=== PATIENT | male | born 1975 | race Two or more races ===

== ENCOUNTER 2018-10-13 03:28 | Inpatient (IN) | payer MEDICAID ==
[~2018-10-13] VITALS: Ht 177.8 cm; Wt 89.7 kg
[2018-10-13] MEDS ORDERED: ONDANSETRON HCL 4 MG/2 ML VIAL IV ONE (07:15)
[2018-10-13] MEDS ORDERED: MORPHINE SULFATE 4 MG/ML SYR/VIAL IV ONE (07:15)
[2018-10-13] MEDS ORDERED: SODIUM CHLORIDE 0.9% 1,000 ML IV ONE (08:15)
[2018-10-13] MEDS ORDERED: PIPERACILLIN-TAZOB 3.375GM 100 ML IV ONE ×2 (08:15→09:15)
[2018-10-13 08:18] LABS: Basophils # (auto) 0.1 uL; Basophils % (auto) 0.8 % (0.0-2.0); Eosinophils # (auto) 0 uL; Hematocrit 45.5 % (41.0-53.0); Hemoglobin 15.5 g/dL (13.5-17.5); Lymphocytes # (auto) 0.8 uL; Lymphocytes % (auto) 5.2 % (10.0-50.0); Mean Corpuscular Hemoglobin 30.7 pg (28.0-32.0); Mean Corpuscular Hgb Conc. 34.1 g/dL (32.0-36.0); Mean Corpuscular Volume 90.2 fL (80.0-100.0); Monocytes # (auto) 0.5 uL; Monocytes % (auto) 3.3 % (0.0-12.0); Neutrophils # (auto) 14.4 uL; Neutrophils % (auto) 90.7 % (37.0-80.0); Nucleated Red Blood Cells % 0.1 %; Platelet Count (auto) 287 10^3/uL (140-450); Red Blood Cells 5.05 10^6/uL (4.5-5.90); Red Cell Distribution Width 12.7 % (11.8-14.3); White Blood Cell 15.8 10^3/uL (4.4-10.8)
[2018-10-13 08:20] LABS: Calcium 9.2 mg/dL (8.5-10.1)
[2018-10-13 08:25] LABS: BUN/Creatinine Ratio 21.4; Bilirubin, Total 0.7 mg/dL (0.2-1.0); Total Protein 7.4 g/dL (6.4-8.2)
[2018-10-13] MEDS ORDERED: KETOROLAC TROMETH 30 MG/ML 1ML VIAL IV ONE (09:15)
[2018-10-13] MEDS ORDERED: MORPHINE SULFATE 4 MG/ML SYR/VIAL IV PRN (09:30)
[2018-10-13] MEDS ORDERED: NITROGLYCERIN 0.4 MG SL TAB SL PRN (09:30)
[2018-10-13] MEDS ORDERED: traMADol HCL 50 MG TAB PO PRN (09:45)
[2018-10-13] MEDS ORDERED: LORazepam 0.5 MG TAB PO PRN (09:45)
[2018-10-13] MEDS ORDERED: PANTOPRAZOLE 40 MG/10 ML VIAL IV ONE (09:45)
[2018-10-13] MEDS ORDERED: cefTRIAXone 1GM/50ML D5W 50 ML IV ONE (09:45)
[2018-10-13 09:47] LABS: Urine Amorphous Crystal MANY /hpf (None Seen); Urine Bacteria NONE SEEN /hpf (None Seen); Urine Blood Negative /uL (Negative); Urine Budding Yeast MODERATE /hpf (None Seen); Urine Specific Gravity 1.029 (1.001-1.035); Urine WBC 16 /hpf (0 - 3)
[2018-10-13 10:07] LABS: Partial Thromboplastin Time 27.6 sec (23.78-33.04); Prothrombin Time 10.7 sec (9.27-12.13)
[2018-10-13] MEDS: SODIUM CHLORIDE 0.9% 1,000 ML IV SCH (10:25)
[2018-10-13] MEDS: metroNIDAZOLE 500MG/100ML 100 ML IV SCH ×2 (12:22→18:01)
[2018-10-13 17:10] VITALS: BP 107/71
[2018-10-13 17:25] VITALS: BP 107/71
--- NOTE | 2018-10-13 17:25 | NUR ---
Telemetry admit from ER SWAPNIL BHATTI admitted to Telemetry unit. Patient oriented to CARLOS LAI RN primary RN, unit, room, bed, and unit policies regarding patient care and visiting hours. Patient now on continuous telemetry monitoring. Discussed POC and encouraged to call if they need something. All questions and concerns addressed, patient verbalized understanding.
--- NOTE | 2018-10-13 19:45 | NUR ---
End of Shift Endorsed care to [facility] nurse Desirae. Patient shows no signs of distress at this time. Bed in lowest locked position, side rails up x2, and call light within reach.
--- NOTE | 2018-10-13 20:10 | NUR ---
received pt from day rn poc reviewed
[2018-10-13 22:00] VITALS: BP 117/71
[2018-10-13] MEDS: MORPHINE SULFATE 4 MG/ML SYR/VIAL IV PRN (22:52)
--- NOTE | 2018-10-13 22:54 | NUR ---
pts tele removed per charge nurse protocol pt has been sr no c/o cp
[2018-10-14] MEDS: metroNIDAZOLE 500MG/100ML 100 ML IV SCH ×5 (04:13→23:58)
[2018-10-14 04:47] VITALS: BP 103/59
[2018-10-14] MEDS: SODIUM CHLORIDE 0.9% 1,000 ML IV SCH ×2 (05:31→06:58)
[2018-10-14 06:30] LABS: Basophils # (auto) 0 uL; Basophils % (auto) 0.3 % (0.0-2.0); Eosinophils # (auto) 0.2 uL; Eosinophils % (auto) 1.5 % (0.0-7.0); Hematocrit 42.1 % (41.0-53.0); Hemoglobin 14.6 g/dL (13.5-17.5); Lymphocytes # (auto) 1.9 uL; Lymphocytes % (auto) 16.6 % (10.0-50.0); Mean Corpuscular Hemoglobin 31.2 pg (28.0-32.0); Mean Corpuscular Hgb Conc. 34.7 g/dL (32.0-36.0); Mean Corpuscular Volume 90.1 fL (80.0-100.0); Monocytes # (auto) 1.1 uL; Monocytes % (auto) 9.5 % (0.0-12.0); Neutrophils # (auto) 8.1 uL; Neutrophils % (auto) 72.1 % (37.0-80.0); Nucleated Red Blood Cells % 0.1 %; Platelet Count (auto) 259 10^3/uL (140-450); Red Blood Cells 4.68 10^6/uL (4.5-5.90); Red Cell Distribution Width 12.8 % (11.8-14.3); White Blood Cell 11.2 10^3/uL (4.4-10.8)
[2018-10-14 06:47] LABS: Albumin 3.2 g/dL (3.4-5.0); Calcium 8.1 mg/dL (8.5-10.1); Potassium 3.9 mmol/L (3.5-5.1)
[2018-10-14 06:51] LABS: Amylase 48 U/L (25-115); Lipase 139 U/L (73-393)
[2018-10-14 06:55] LABS: BUN/Creatinine Ratio 14.1; Bilirubin, Total 1.1 mg/dL (0.2-1.0); Total Protein 6.1 g/dL (6.4-8.2)
--- NOTE | 2018-10-14 07:12 | NUR ---
report given to am nurse poc reviewed
--- NOTE | 2018-10-14 07:15 | NUR ---
Open Shift Note Received report on patient, asleep in bed, awoken when entered room. Patient shows no signs of distress but still states pain. Discussed PRN pain medication. Discussed POC with patient. Bed in lowest locked position, side rails up x2, and call light within reach. Will continue to monitor.
--- NOTE | 2018-10-14 07:50 | NUR ---
DC Tele Received in report that patient was downgraded to med surg last night, but no orders to DC tele were in place. Spoke with charge nurse and confirmed that tele can be discontinued per nursing protocol. Patient has no cardiac history, vitals stable, tele strips show sinus rhythm and patient has no blood pressure/heart medications ordered.
[2018-10-14] MEDS: MORPHINE SULFATE 4 MG/ML SYR/VIAL IV PRN ×3 (08:06→21:06)
[2018-10-14] MEDS: cefTRIAXone 1GM/50ML D5W 50 ML IV SCH (08:07)
[2018-10-14 08:38] VITALS: BP 112/68
[2018-10-14] MEDS: PANTOPRAZOLE 40 MG/10 ML VIAL IV SCH (09:45)
[2018-10-14 12:16] VITALS: BP 119/61
[2018-10-14 16:39] VITALS: BP 107/65
[2018-10-14] MEDS: SOD CHL 0.9%/ KCL 20MEQ 1,000 ML IV SCH (16:56)
--- NOTE | 2018-10-14 19:19 | NUR ---
End of Shift Endorsed care to NOC nurse. Patient shows no signs of distress at this time. Bed in lowest locked position, side rails up x2, and call light within reach.
--- NOTE | 2018-10-14 19:30 | NUR ---
Opening shift note Patient in bed alert and oriented x 4, verbally coherent, able to make needs known. Patient's respiration even and unlabored, noted facial grimacing and guarding to abdomen, patient verbalized abdominal pain at 8/10. Will administer pain medication as ordered. Plan of care discussed, patient verbalized understanding. All needs attended, will continue to monitor.
[2018-10-14 22:00] VITALS: BP 107/65
[2018-10-15 05:00] VITALS: BP 110/65
[2018-10-15] MEDS: metroNIDAZOLE 500MG/100ML 100 ML IV SCH ×3 (05:34→17:20)
[2018-10-15] MEDS: SOD CHL 0.9%/ KCL 20MEQ 1,000 ML IV SCH ×2 (05:34→17:55)
[2018-10-15] MEDS ORDERED: IOHEXOL 300 MG/ML 100ML BOTTLE IJ ONE (07:39)
--- NOTE | 2018-10-15 08:00 | NUR ---
ASSESSMENT NOTE PT IS ALERT ORIENTED X4, RESTING IN BED COMFORTABLY, NO DISTRESS NOTED, SELF REPOSITION, ABLE TO IDENTIFY HIS DEMANDS, CALL LIGHT WITHIN REACH.
[2018-10-15] MEDS: cefTRIAXone 1GM/50ML D5W 50 ML IV SCH (08:31)
[2018-10-15] MEDS: PANTOPRAZOLE 40 MG/10 ML VIAL IV SCH (08:31)
[2018-10-15 09:00] VITALS: BP 113/71
[2018-10-15] MEDS: MORPHINE SULFATE 4 MG/ML SYR/VIAL IV PRN ×3 (11:35→22:02)
[2018-10-15 12:21] VITALS: BP 114/70
--- NOTE | 2018-10-15 16:50 | NUR ---
PT CONTINUE ON PAIN MANAGEMENT NEEDED, FOR ABDOMEN ACHING PAIN, NO DISTRESS NOTED, CONTINUE MONITORING.
[2018-10-15 17:00] VITALS: BP 116/62
--- NOTE | 2018-10-15 18:39 | NUR ---
PT CONTINUE STABLE CONTINUE MONITORING.
[2018-10-15 22:00] VITALS: BP 107/67
--- NOTE | 2018-10-16 | NUR ---
Patient aware and verbalized understanding NPO at midnight in preparation for procedure.
[2018-10-16] MEDS: metroNIDAZOLE 500MG/100ML 100 ML IV SCH ×5 (00:26→22:59)
[2018-10-16 05:00] VITALS: BP 102/62
--- NOTE | 2018-10-16 07:10 | NUR ---
CHG wipes provided. Instruction given on use. Patient verbalized understanding.
--- NOTE | 2018-10-16 07:11 | NUR ---
Patient requested to have a shower before the procedure. Per patient, no need for assistance of TRUCK DRIVER INSTRUCTOR, able to ambulate safely.
[2018-10-16] MEDS: SOD CHL 0.9%/ KCL 20MEQ 1,000 ML IV SCH (07:15)
--- NOTE | 2018-10-16 07:45 | NUR ---
Opening Shift Note Assumed care of patient, awake and alert ambulating from restroom. No S/S of distress/SOB or pain. Instructed on POC and to call for assist PRN, will continue to monitor for changes Q1hr and PRN. NPO status maintained.
[2018-10-16] MEDS ORDERED: ONDANSETRON HCL 4 MG/2 ML VIAL ONE (07:47)
[2018-10-16] MEDS ORDERED: SODIUM CHLORIDE LOCK 20 ML ONE (07:47)
[2018-10-16] MEDS ORDERED: PROPOFOL 10 MG/ML 20 ML IV ONE (07:47)
[2018-10-16] MEDS ORDERED: KETAMINE HCL 1 ML ONE (07:47)
[2018-10-16] MEDS ORDERED: MIDAZOLAM HCL 1MG/1ML-2 ML VIAL ONE (07:47)
[2018-10-16] MEDS ORDERED: fentaNYL CITRATE 100 MCG/2 ML VL ONE (07:47)
[2018-10-16] MEDS: cefTRIAXone 1GM/50ML D5W 50 ML IV SCH (08:35)
[2018-10-16 08:38] VITALS: BP 109/70
[2018-10-16] MEDS: PANTOPRAZOLE 40 MG/10 ML VIAL IV SCH (08:40)
--- NOTE | 2018-10-16 09:00 | NUR ---
Patient left unit for pre-op. No distress noted at this time.
[2018-10-16] MEDS ORDERED: IOHEXOL 300 MG/ML 100ML BOTTLE IJ ONE (09:14)
[2018-10-16] MEDS ORDERED: HYDROmorphone HCL 2 MG/ML VL IV PRN (09:45)
[2018-10-16] MEDS ORDERED: KETOROLAC TROMETH 30 MG/ML 1ML VIAL IV ONE (09:45)
[2018-10-16] MEDS ORDERED: METOCLOPRAMIDE HCL 5MG/ml INJ 2ml VIAL IV ONE (09:45)
--- NOTE | 2018-10-16 10:31 | NUR ---
Dr. Wayne, Hospitalist in to see patient. Still off unit at procedure.
--- NOTE | 2018-10-16 12:35 | NUR ---
Patient returned to unit after having ERCP done. Patient is awake but drowsy, no complaints at this time. Call light placed within reach and bed alarm on for safety.
[2018-10-16 13:00] VITALS: BP 107/66
[2018-10-16] MEDS: PROMETHAZINE HCL 25 MG/ML 1ML IV PRN ×2 (13:21→22:58)
[2018-10-16] MEDS: MORPHINE SULFATE 4 MG/ML SYR/VIAL IV PRN ×2 (13:21→22:59)
--- NOTE | 2018-10-16 13:29 | NUR ---
NUTRITION ASSESSMENT NOTES Please refer to link notes of nutrition screen form filed under the intervention section of the plan of care for further details. Est. Needs: 1850 kcal to 2300 kcal (20-25 kcal/kgBW), 75 gms to 94 gms pro (0.8-1.0 gms/kgBW). Will continue to monitor pertinent labs and reassess nutrient needs prn Thank you. Addendum: 10/16/18 at [address] Amended: Links added.
[2018-10-16 17:00] VITALS: BP 90/48
[2018-10-16] MEDS: ACETAMINOPHEN 500 MG TAB PO PRN (17:01)
[2018-10-16] MEDS: traMADol HCL 50 MG TAB PO PRN (17:31)
--- NOTE | 2018-10-16 18:30 | NUR ---
Vitals rechecked B/P 100/60 Pulse 96 oxygen 91% Temp 99.4
--- NOTE | 2018-10-16 19:55 | NUR ---
Opening Shift Note Assumed care of patient. Patient is sleeping with symmetrical chest rise and fall. Patient is on nasal cannula, 3 liters. Bed is locked in lowest position, side rails x 2 are up, call light is within reach, and bed alarm is on.
[2018-10-16 22:00] VITALS: BP 97/53
[2018-10-17] MEDS: SOD CHL 0.9%/ KCL 20MEQ 1,000 ML IV SCH ×2 (03:14→12:45)
[2018-10-17] MEDS: MORPHINE SULFATE 4 MG/ML SYR/VIAL IV PRN ×3 (03:37→18:17)
[2018-10-17] MEDS: PROMETHAZINE HCL 25 MG/ML 1ML IV PRN ×4 (03:44→21:57)
[2018-10-17 05:00] VITALS: BP 93/51
[2018-10-17] MEDS: metroNIDAZOLE 500MG/100ML 100 ML IV SCH ×3 (06:10→17:53)
[2018-10-17 07:06] LABS: Basophils # (auto) 0 uL; Basophils % (auto) 0.3 % (0.0-2.0); Eosinophils # (auto) 0.2 uL; Hematocrit 37.8 % (41.0-53.0); Hemoglobin 12.9 g/dL (13.5-17.5); Lymphocytes # (auto) 1.9 uL; Lymphocytes % (auto) 11.5 % (10.0-50.0); Mean Corpuscular Hgb Conc. 34.2 g/dL (32.0-36.0); Mean Corpuscular Volume 90.5 fL (80.0-100.0); Monocytes # (auto) 1.3 uL; Monocytes % (auto) 7.7 % (0.0-12.0); Neutrophils # (auto) 13.5 uL; Neutrophils % (auto) 79.5 % (37.0-80.0); Platelet Count (auto) 235 10^3/uL (140-450); Red Blood Cells 4.18 10^6/uL (4.5-5.90); Red Cell Distribution Width 12.9 % (11.8-14.3)
[2018-10-17 07:20] LABS: Potassium 3.7 mmol/L (3.5-5.1)
[2018-10-17 07:22] LABS: Albumin 2.5 g/dL (3.4-5.0); BUN/Creatinine Ratio 10.8; Calcium 7.6 mg/dL (8.5-10.1)
[2018-10-17 07:31] LABS: Bilirubin, Total 0.7 mg/dL (0.2-1.0); Total Protein 5.8 g/dL (6.4-8.2)
--- NOTE | 2018-10-17 07:40 | NUR ---
Opening Shift Note Assumed care of patient, asleep but easily aroused. No S/S of distress/SOB or pain. Instructed on POC and to call for assist PRN, will continue to monitor for changes Q1hr and PRN. NPO status maintained for surgery this am.
[2018-10-17 07:45] LABS: INR 1.19 (0.9-1.15); Partial Thromboplastin Time 30.3 sec (23.78-33.04); Prothrombin Time 12.6 sec (9.27-12.13)
--- NOTE | 2018-10-17 07:49 | NUR ---
CLOSING SHIFT NOTE ENDORSED PATIENT CARE TO MADELEINE CORLEY.
--- NOTE | 2018-10-17 07:52 | NUR ---
Opening Shift Note Assumed care of patient, awake and alert in bed. No S/S of distress/SOB or pain. Instructed on POC and to call for assist PRN, will continue to monitor for changes Q1hr and PRN. NPO maintained and consent forms already signed.
[2018-10-17] MEDS ORDERED: ROCURONIUM 10MG/ML 10ML VIAL IV ONE (07:58)
[2018-10-17] MEDS ORDERED: fentaNYL CITRATE 10 ML ONE (07:58)
[2018-10-17] MEDS ORDERED: MIDAZOLAM HCL 1MG/1ML-2 ML VIAL ONE (07:58)
[2018-10-17] MEDS ORDERED: SODIUM CHLORIDE LOCK 10 ML ONE (07:58)
[2018-10-17] MEDS ORDERED: MORPHINE SULFATE INJECTION 1 ML ONE (07:58)
[2018-10-17] MEDS ORDERED: PROPOFOL 10 MG/ML 20 ML IV ONE (07:58)
[2018-10-17] MEDS ORDERED: ONDANSETRON HCL 4 MG/2 ML VIAL ONE (07:58)
[2018-10-17] MEDS ORDERED: fentaNYL CITRATE 100 MCG/2 ML VL ONE (07:58)
[2018-10-17] MEDS ORDERED: POVIDONE IODINE 10 % TOPICAL OINT 30GM TOP ONE (07:58)
--- NOTE | 2018-10-17 08:30 | NUR ---
Patient left unit on stretcher for pre-op.
[2018-10-17] MEDS ORDERED: LIDOCAINE HCL 2% TOP JELLY 5ML TOP ONE (08:41)
[2018-10-17] MEDS: cefTRIAXone 1GM/50ML D5W 50 ML IV SCH (09:00)
[2018-10-17 09:09] VITALS: BP 94/52
[2018-10-17] MEDS ORDERED: KETOROLAC TROMETH 60MG/2ML VIAL IM ONE (09:52)
[2018-10-17] MEDS ORDERED: NEOSTIGMINE 1 MG/ML INJ (10mg/10ML VIAL) ONE (09:52)
[2018-10-17] MEDS ORDERED: GLYCOPYRROLATE 0.2 MG/ML 1ML VIAL ONE (09:52)
[2018-10-17] MEDS ORDERED: ACETAMINOPHEN IV 100 ML IV ONE (10:50)
[2018-10-17] MEDS ORDERED: ACETAMINOPHEN IV 1000 MG/100ML (10MG/ML) IV ONE (11:15)
--- NOTE | 2018-10-17 11:48 | NUR ---
Patient returned to unit after having cholecystectomy done. Patient awake but drowsy. Dressing to op-site dry and intact, John drain in place with small amount of serosanguineous fluid. Call light placed within reach and bed alarm on. Patient encouraged to call if he needs anything.
[2018-10-17] MEDS: PANTOPRAZOLE 40 MG/10 ML VIAL IV SCH (12:39)
[2018-10-17 12:44] VITALS: BP 105/65
[2018-10-17 16:38] VITALS: BP 100/63
--- NOTE | 2018-10-17 19:35 | NUR ---
Opening Shift Note Assumed care of patient, awake and alert x 4. No S/S of distress/SOB noted. Patient is on 2L nasal cannula. Patient complains of pain to upper abdomen, will medicate patient as ordered. Instructed on plan of care and to call for assistance as needed. Bed is locked in lowest position, side rails x 2 are up, call light is within reach, and bed alarm is on.
[2018-10-17 22:00] VITALS: BP 122/69
[2018-10-18] MEDS: metroNIDAZOLE 500MG/100ML 100 ML IV SCH ×5 (00:50→23:47)
[2018-10-18] MEDS: TEMAZEPAM 15 MG CAP PO PRN (00:56)
[2018-10-18] MEDS: PROMETHAZINE HCL 25 MG/ML 1ML IV PRN ×4 (05:17→23:45)
[2018-10-18] MEDS: MORPHINE SULFATE 4 MG/ML SYR/VIAL IV PRN ×5 (05:17→23:46)
[2018-10-18 05:26] VITALS: BP 113/70
[2018-10-18] MEDS: SOD CHL 0.9%/ KCL 20MEQ 1,000 ML IV SCH ×3 (06:52→23:54)
--- NOTE | 2018-10-18 07:00 | NUR ---
DANNIELLE DRAINAGE DANNIELLE Drainage total: 50ml sanguinous.
--- NOTE | 2018-10-18 08:15 | NUR ---
CLOSING SHIFT NOTE Endorsed patient care to Crista CORLEY.
[2018-10-18] MEDS: cefTRIAXone 1GM/50ML D5W 50 ML IV SCH (08:36)
[2018-10-18] MEDS: PANTOPRAZOLE 40 MG/10 ML VIAL IV SCH (08:36)
[2018-10-18 08:52] VITALS: BP 113/65
[2018-10-18 13:00] VITALS: BP 124/72
--- NOTE | 2018-10-18 13:33 | NUR ---
Nutrition Follow-up Notes Wt.: 95.0 kg as of yesterday. Pt's s/p open randolph yesterday, denies any discomfort except for severe abdominal incision pain (05/15) especially when he moves, per pt when rounded this morning. 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 Pt's currently on Clear Liquid diet with good PO intake aeb 88% consumed meal as of today's breakfast. Est. Needs: 1850 kcal to 2300 kcal (20-25 kcal/kgBW), 75 gms to 94 gms pro (0.8-1.0 gms/kgBW). Will continue to monitor pertinent labs and reassess nutrient needs prn Labs: Ca 7.6 L, Tpro 5.8 L, Alb 2.5 L Skin: Weston scale 18, mod risk, pt's right upper lower abdomen incision dry and intact per rn documentation specialist. GI: Pt had 1 BM yesterday per rn documentation specialist. PES: Increased nutrient needs r/t altered GI functions aeb Gallbladder disease,Mesenteric panniculitis,Abdominal pain, UTI,mild hypoalbuminemia, on NPO/ Clear Liquid diet Altered nutrition related lab values r/t current/chronic medical condition aeb hyperbilirubinemia, hypocalcemia and mild hypoalbuminemia Will continue to monitor PO intake, skin status, pertinent labs and weight trend. F/u in 2 to 3 days. Rec.: 1.) Advance oral diet (Soft Low Fat diet) when medically appropriate. 2.) If Albumin level continues trending down, consider Prostat 1 pkt BID. 3.) Continue close supervision with meals 4.) Refer to RD for further nutrition educ. and weight monitoring upon discharge. 5.) Continue current plan of care.
[2018-10-18 17:00] VITALS: BP 119/78
--- NOTE | 2018-10-18 18:00 | NUR ---
Farfan Farfan catheter removed as per order.
--- NOTE | 2018-10-18 18:00 | NUR ---
DANNIELLE Drain 8cc of serosanguineous fluids emptied.
--- NOTE | 2018-10-18 19:35 | NUR ---
Opening Shift Note Assumed care of patient, awake and alert oriented x4. No S/S of distress/SOB noted. Bed is in lowest locked position with bed rails up x2 and call light is within reach of the patient. Instructed on POC and to call for assist PRN.
[2018-10-18 21:00] VITALS: BP 124/75
[2018-10-19] MEDS: TEMAZEPAM 15 MG CAP PO PRN (01:29)
[2018-10-19 05:00] VITALS: BP 131/88
[2018-10-19] MEDS: MORPHINE SULFATE 4 MG/ML SYR/VIAL IV PRN ×2 (05:34→10:11)
[2018-10-19] MEDS: PROMETHAZINE HCL 25 MG/ML 1ML IV PRN ×2 (05:34→10:11)
[2018-10-19] MEDS: metroNIDAZOLE 500MG/100ML 100 ML IV SCH ×4 (05:34→23:54)
--- NOTE | 2018-10-19 07:40 | NUR ---
Opening Shift Note Assumed care of patient, awake and alert. No S/S of distress/SOB or pain. Instructed on POC and to call for assist PRN, will continue to monitor for changes Q1hr and PRN. Patient encouraged to ambulate today and to continue with incentive spirometer.
--- NOTE | 2018-10-19 07:48 | NUR ---
10 MLS OF SEROSANGUINEOUS FLUID DRAINED FROM DANNIELLE DRAIN.
[2018-10-19] MEDS: PANTOPRAZOLE 40 MG/10 ML VIAL IV SCH (08:34)
[2018-10-19] MEDS: guaiFENesin-DM 100/10mg/5ml SYR PO PRN ×4 (08:34→23:54)
[2018-10-19] MEDS: cefTRIAXone 1GM/50ML D5W 50 ML IV SCH (08:34)
--- NOTE | 2018-10-19 10:00 | NUR ---
Patient ambulated to bathroom, states he passed gas, but no bowel movement.
[2018-10-19] MEDS ORDERED: FLEET ENEMA(ADULT) 135 ML PR ONE (10:30)
--- NOTE | 2018-10-19 12:30 | NUR ---
Fleet enema given, patient tolerated procedure.
[2018-10-19] MEDS: traMADol HCL 50 MG TAB PO PRN ×2 (14:12→20:15)
--- NOTE | 2018-10-19 15:20 | NUR ---
Patient stated he had small bowel movement.
[2018-10-19] MEDS ORDERED: MORPHINE SULFATE 4 MG/ML SYR/VIAL IV PRN (15:45)
[2018-10-19] MEDS: SOD CHL 0.9%/ KCL 20MEQ 1,000 ML IV SCH ×2 (17:20→23:54)
--- NOTE | 2018-10-19 18:00 | NUR ---
DANNIELLE Drain 7cc of serosanguineous fluids emptied
--- NOTE | 2018-10-19 19:30 | NUR ---
Opening Shift Note Assumed care of patient, awake and alert oriented x4. No S/S of distress/SOB noted. Dressings are dry and intact and patient is ambulating as tolerated. Bed is in lowest locked position with bed rails up x2 and call light is within reach of the patient. Instructed on POC and to call for assist PRN.
[2018-10-19 22:37] VITALS: BP 117/83
[2018-10-19] MEDS: ACETAMINOPHEN 500 MG TAB PO PRN (23:53)
[2018-10-20] MEDS: guaiFENesin-DM 100/10mg/5ml SYR PO PRN ×3 (04:33→19:19)
[2018-10-20] MEDS: traMADol HCL 50 MG TAB PO PRN ×2 (04:34→19:19)
[2018-10-20] MEDS: metroNIDAZOLE 500MG/100ML 100 ML IV SCH (05:31)
[2018-10-20 05:46] VITALS: BP 118/69
--- NOTE | 2018-10-20 07:45 | NUR ---
Patient in bed, awake, oriented x4, removed his nasal cannula on O2 at 2 LPM, stated the O2 makes him cough more and causing pain on his abdomen (post op Lap Cholecystectomy). With Incentive Spirometer at bedside. Patient stated he use it.
[2018-10-20 08:00] VITALS: BP 138/116
--- NOTE | 2018-10-20 09:46 | NUR ---
Dr. Wayne explained to the patient that patient is going home with DANNIELLE Bulb drain as per Dr. Buckley; patient to follow up with Dr. Bucklye when discharge for DANNIELLE Bulb removal. Dr. Wayne to order Regular Diet.
--- NOTE | 2018-10-20 09:46 | NUR ---
Dr. Wayne at bedside. Patient stated he wants to eat solid food. Patient on Full Liquid Diet.
[2018-10-20] MEDS: ACETAMINOPHEN 500 MG TAB PO PRN (09:48)
--- NOTE | 2018-10-20 09:48 | NUR ---
Patient in pain, at 9/10 at this time. Patient has coughing. Tylenol PO given for pain, Robitussin syrup given for cough.
[2018-10-20] MEDS: PANTOPRAZOLE 40 MG/10 ML VIAL IV SCH (09:50)
[2018-10-20] MEDS: cefTRIAXone 1GM/50ML D5W 50 ML IV SCH (09:50)
[2018-10-20] MEDS: PANTOPRAZOLE 40 MG TAB PO SCH (10:00)
[2018-10-20] MEDS ORDERED: LORazepam 0.5 MG TAB PO PRN (10:00)
[2018-10-20] MEDS ORDERED: TEMAZEPAM 15 MG CAP PO PRN (10:00)
[2018-10-20] MEDS: CIPROFLOXACIN HCL 500 MG TAB PO SCH ×2 (11:17→21:12)
[2018-10-20 12:00] VITALS: BP 120/74
[2018-10-20] MEDS: HYDROcodone-ACET 5/325MG TAB PO PRN (14:07)
[2018-10-20] MEDS: metroNIDAZOLE 500 MG TAB PO SCH ×2 (14:07→21:12)
--- NOTE | 2018-10-20 14:07 | NUR ---
Patient stated he's in pain. [place] 5/325 PO given as ordered.
--- NOTE | 2018-10-20 15:18 | NUR ---
Nutrition Follow-up Notes Wt.:89.7 kg Pt's s/p ERCP, awake and oriented. per pt no N/V and has not so good appetite. Pt is now advanced to regular diet with inadequate PO of < 50% x 4 per RN doc. pt encouraged to eat as much as he can Est. Needs: 1850 kcal to 2300 kcal (20-25 kcal/kgBW), 75 gms to 94 gms pro (0.8-1.0 gms/kgBW). Will continue to monitor pertinent labs and reassess nutrient needs prn Labs: CA 7.6 L, ALB 2.5 L. Skin: Weston scale 21, low risk, pt's right upper lower abdomen incision dry and intact per hand cloth folder. GI: Pt had 1 BM yesterday per hand cloth folder. PES: Increased nutrient needs r/t altered GI functions aeb Gallbladder disease,Mesenteric panniculitis,Abdominal pain, UTI,mild hypoalbuminemia, on NPO/ Clear Liquid diet Altered nutrition related lab values r/t current/chronic medical condition aeb hyperbilirubinemia, hypocalcemia and mild hypoalbuminemia Will continue to monitor PO intake, skin status, pertinent labs and weight trend. F/u in 3-5 days. Rec.: 1.) Consider Low Fat diet. 2.) If Albumin level continues trending down, consider Prostat 1 pkt BID. 3) consider ensure enlive 1 carton bid as PO is low 3.) Continue close supervision with meals 4.) Refer to RD for further nutrition educ. and weight monitoring upon discharge. 5.) Continue current plan of care.
[2018-10-20 16:00] VITALS: BP 116/67
--- NOTE | 2018-10-20 17:53 | NUR ---
Patient stated he's in pain, has coughing but he will take the pain and cough medications after dinner. Will give the Robitussin and Tramadol after dinner.
--- NOTE | 2018-10-20 20:00 | NUR ---
OPENING NOTE RECEIVED REPORT FROM DAYSHIFT RN. ASSUMING ROLE OF CARE OF PATIENT AT THIS TIME. PATIENT SHOWING NO SIGN OF DISTRESS, AND PATIENT STATES PAIN IS 4/10 AFTER RECEIVING PAIN MEDICATION. WILL CONTINUE TO MONITOR PAIN AT THIS TIME. PATIENT EDUCATED ON PLAN OF CARE FOR THE NIGHT. PATIENT VERBALIZED UNDERSTANDING. BED LOWERED, CALL LIGHT WITHIN REACH, AND PATIENT WILL BE ROUNDED ON EVERY HOUR AND NEEDED.
[2018-10-20 22:00] VITALS: BP 121/73
[2018-10-21] MEDS: HYDROcodone-ACET 5/325MG TAB PO PRN ×2 (00:03→05:43)
[2018-10-21] MEDS: guaiFENesin-DM 100/10mg/5ml SYR PO PRN ×2 (00:03→10:05)
[2018-10-21] MEDS: traMADol HCL 50 MG TAB PO PRN ×2 (01:45→10:05)
[2018-10-21 05:37] VITALS: BP 102/60
[2018-10-21] MEDS: metroNIDAZOLE 500 MG TAB PO SCH ×2 (05:39→17:14)
--- NOTE | 2018-10-21 07:50 | NUR ---
Patient not in bed at this time.
[2018-10-21 09:00] VITALS: BP 117/70
[2018-10-21] MEDS: PANTOPRAZOLE 40 MG TAB PO SCH (10:05)
--- NOTE | 2018-10-21 10:05 | NUR ---
Patient stated his pain level at 6/10 at this time, also requested Robitussin for cough. Ultram PO given for pain, Robitussin syrup given for cough.
[2018-10-21] MEDS: CIPROFLOXACIN HCL 500 MG TAB PO SCH (10:06)
[2018-10-21 13:00] VITALS: BP_SYST 127; BP_SYST 129; BP_DIAS 72; BP_DIAS 79
[2018-10-21] MEDS ORDERED: PNEUMOCOCCAL VACC POLYS 25 MCG/0.5 ML VIAL IM ONE (16:30)
--- NOTE | 2018-10-21 16:30 | NUR ---
Dr. Rucker at bedside. Explained to patient the need for Pneumococcal vaccine. Patient stated his concerns about the side effects. MD explained the risks and benefits.
--- NOTE | 2018-10-21 17:00 | NUR ---
Patient stated he will get the Pneumococcal vaccine.
[2018-10-21 17:15] LABS: Basophils # (auto) 0 uL; Basophils % (auto) 0.6 % (0.0-2.0); Eosinophils # (auto) 0.3 uL; Eosinophils % (auto) 3.7 % (0.0-7.0); Hematocrit 40.4 % (41.0-53.0); Hemoglobin 13.5 g/dL (13.5-17.5); Lymphocytes # (auto) 1.4 uL; Mean Corpuscular Hemoglobin 30.5 pg (28.0-32.0); Mean Corpuscular Hgb Conc. 33.4 g/dL (32.0-36.0); Mean Corpuscular Volume 91.3 fL (80.0-100.0); Monocytes # (auto) 1.2 uL; Monocytes % (auto) 15.4 % (0.0-12.0); Neutrophils % (auto) 62.3 % (37.0-80.0); Platelet Count (auto) 305 10^3/uL (140-450); Red Blood Cells 4.43 10^6/uL (4.5-5.90); White Blood Cell 8.1 10^3/uL (4.4-10.8)
[2018-10-21] MEDS ORDERED: PNEUMOCOCCAL VACC POLYS 25 MCG/0.5 ML Syringe IM ONE (17:15)
[2018-10-21 17:28] LABS: Albumin 2.9 g/dL (3.4-5.0); Calcium 8.4 mg/dL (8.5-10.1)
[2018-10-21 17:32] LABS: BUN/Creatinine Ratio 13.6; Bilirubin, Total 0.3 mg/dL (0.2-1.0); Total Protein 6.5 g/dL (6.4-8.2)
--- NOTE | 2018-10-21 17:50 | NUR ---
Dr. Rucker called back. ordered to discharge the patient.
--- NOTE | 2018-10-21 18:05 | NUR ---
Explained to patient that he has to call on Tuesday for a follow up appointment with Hitesh Kelly for the DANNIELLE bulb removal, keep the abdominal binder on when getting up and walking.
--- NOTE | 2018-10-21 19:00 | NUR ---
Discharge instructions given as ordered. Encourage to follow up with PMD as instructed. All questions and concerns addressed. Patient verbalized understanding. Medication reconciliation form completed and copy given to patient. Needed vaccine given. IV removed with catheter intact, pressure dressing applied. Patient taken to vehicle via wheelchair with all personal belongings, accompanied by staff and family member. DANNIELLE bulb intact and patent, with minimal drainage noted. Instructions given on how to drain. Abdominal binder on. No distress noted at time of departure.
== END 2018-10-21 19:00 | disposition home or self-care (01) | DRG 263 ==
LOC: ER 03:36 → TELE 09:31 → TELE-EAST 17:29 → EAST 10-14 16:48
PROVIDERS: ADMIT Internal Medicine; ATTEND Internal Medicine
PROC: BF101ZZ Fluoroscopy of Bile Ducts using Low Osmolar Contrast (ICD-10-PCS; 2018-10-16)
PROC: 0FC98ZZ Extirpation of Matter from Common Bile Duct, Via Natural or Artificial Opening Endoscopic (ICD-10-PCS; 2018-10-16)
PROC: 0F798ZZ Dilation of Common Bile Duct, Via Natural or Artificial Opening Endoscopic (ICD-10-PCS; principal; 2018-10-16 09:46)
PROC: 0FT40ZZ Resection of Gallbladder, Open Approach (ICD-10-PCS; 2018-10-17)
DX: K80.62 Calculus of gallbladder and bile duct with acute cholecystitis without obstruction (principal); R65.10 Systemic inflammatory response syndrome (SIRS) of non-infectious origin without acute organ dysfunction; R73.9 Hyperglycemia, unspecified; K82.8 Other specified diseases of gallbladder; K66.0 Peritoneal adhesions (postprocedural) (postinfection); M79.3 Panniculitis, unspecified; K57.30 Diverticulosis of large intestine without perforation or abscess without bleeding; Z80.1 Family history of malignant neoplasm of trachea, bronchus and lung; Z90.81 Acquired absence of spleen; Z23 Encounter for immunization; Z87.81 Personal history of (healed) traumatic fracture
CPT/HCPCS: 36415; 71045; 74018; 74176; 74181; 76000; 76705; 78226; 80053; 81001; 82150; 82247; 83605; 83690; 84443; 85025; 85610; 85652; 85730; 86850; 86900; 86901; 87040; 87081; 93005; 93306; 96365; 96366; 96367; 96368; 96375; 97163; A6257; C9113; G0378; J0131; J0696; J1885; J2250; J2405; J2543; J2704; J3490

== ENCOUNTER 2019-02-17 20:04 | Emergency (ER) | payer MEDICAID ==
[~2019-02-17] VITALS: Ht 177.8 cm; Wt 86.2 kg
[2019-02-17 21:36] LABS: Basophils # (auto) 0.1 uL; Basophils % (auto) 0.8 % (0.0-2.0); Eosinophils # (auto) 0.2 uL; Hematocrit 46.6 % (41.0-53.0); Hemoglobin 16.2 g/dL (13.5-17.5); Lymphocytes # (auto) 2.5 uL; Lymphocytes % (auto) 35.8 % (10.0-50.0); Mean Corpuscular Hemoglobin 30.9 pg (28.0-32.0); Mean Corpuscular Hgb Conc. 34.7 g/dL (32.0-36.0); Mean Corpuscular Volume 89.1 fL (80.0-100.0); Monocytes # (auto) 0.5 uL; Neutrophils # (auto) 3.6 uL; Neutrophils % (auto) 52.4 % (37.0-80.0); Nucleated Red Blood Cells % 0.1 %; Platelet Count (auto) 227 10^3/uL (140-450); Red Blood Cells 5.23 10^6/uL (4.5-5.90); Red Cell Distribution Width 13.2 % (11.8-14.3); White Blood Cell 6.9 10^3/uL (4.4-10.8)
[2019-02-17 22:01] LABS: Albumin 3.9 g/dL (3.4-5.0); Calcium 8.8 mg/dL (8.5-10.1); Potassium 3.9 mmol/L (3.5-5.1)
[2019-02-17 22:05] LABS: BUN/Creatinine Ratio 19.3; Bilirubin, Total 0.4 mg/dL (0.2-1.0); Total Protein 7.4 g/dL (6.4-8.2)
[2019-02-18] MEDS ORDERED: SODIUM CHLORIDE 0.9% 1,000 ML IV ONE (03:30)
[2019-02-18 04:09] VITALS: BP 103/69
[2019-02-18 04:16] LABS: Urine Bacteria NONE SEEN /hpf (None Seen); Urine Blood Negative /uL (Negative); Urine Mucus FEW (None Seen); Urine Specific Gravity 1.028 (1.001-1.035); Urine WBC <1 /hpf (0 - 3)
== END 2019-02-18 04:20 | disposition home or self-care (01) ==
LOC: ER 20:04
DX: K52.9 Noninfective gastroenteritis and colitis, unspecified (principal); I88.0 Nonspecific mesenteric lymphadenitis
CPT/HCPCS: 36415; 74176; 80053; 81001; 85025; 86850; 86900; 86901; 94761; 96360; 99284; J7030

== ENCOUNTER 2022-09-13 13:01 | Emergency (ER) | payer MEDICAID ==
[~2022-09-13] VITALS: Ht 177.8 cm; Wt 95.4 kg
[2022-09-13 13:39] VITALS: BP 122/81
[2022-09-13] MEDS ORDERED: KETOROLAC TROMETH 60MG/2ML VIAL IM ONE (13:45)
[2022-09-13] MEDS ORDERED: HYDR-4902 PO (14:12)
[2022-09-13] MEDS ORDERED: IBUP800T26 PO (14:12)
== END 2022-09-13 14:33 | disposition home or self-care (01) ==
LOC: ER 13:01
DX: S20.20XA Contusion of thorax, unspecified, initial encounter (principal); W04.XXXA Fall while being carried or supported by other persons, initial encounter; Y93.89 Activity, other specified; Y92.89 Other specified places as the place of occurrence of the external cause; Y99.8 Other external cause status
CPT/HCPCS: 71101; 96372; 99283; J1885

== ENCOUNTER 2023-01-08 18:56 | Emergency (ER) | payer MEDICAID ==
[~2023-01-08] VITALS: Ht 177.8 cm; Wt 95.6 kg
[~2023-01-08 18:56] MED LIST: HYDR-4902 PO; IBUP800T26 PO
[2023-01-08] MEDS ORDERED: HYDROcodone-ACET 10/325MG TAB PO ONE (19:45)
[2023-01-08 19:55] VITALS: BP 120/78
[2023-01-08] MEDS ORDERED: CYCL-839 PO (21:48)
[2023-01-08] MEDS ORDERED: IBU600T PO (21:48)
== END 2023-01-08 21:58 | disposition home or self-care (01) ==
LOC: ER 18:56
DX: S13.4XXA Sprain of ligaments of cervical spine, initial encounter (principal); S00.03XA Contusion of scalp, initial encounter; S06.0X0A Concussion without loss of consciousness, initial encounter; W22.8XXA Striking against or struck by other objects, initial encounter; Y93.89 Activity, other specified; Y92.89 Other specified places as the place of occurrence of the external cause; Y99.8 Other external cause status
CPT/HCPCS: 70450; 72040

== ENCOUNTER 2025-07-11 18:26 | Emergency (ER) | payer MEDICAID ==
[~2025-07-11] VITALS: Ht 177.8 cm; Wt 94.9 kg
[~2025-07-11 18:26] MED LIST changes: +CYCL-839 PO; +IBU600T PO; +IBUP-1455 PO; -IBUP800T26 PO
[2025-07-11 18:29] VITALS: BP 116/86; PULSE 61; RESP 16; TEMP 98.5; O2SAT 98
--- NOTE | 2025-07-11 18:58 | ED.PDOC ---
HPI Comments PT PRESENTED TO ED FOR HEAD LACERATION X 2 HRS AGO. PT STATED HE WAS WORKING ON HIS VEHICLE WHEN CAR FREIRE FELL ON HEAD. DENIES LOC, NECK PAIN, BACK PAIN, HEAD PAIN OR ANY OTHER KNOWN INJURY. MINIMAL BLEEDING NOTED. (-) LOC, (-) N/V. GCS-15, VSS. Chief Complaint: Laceration Time Seen by MD: 18:29 Primary Care Provider: DENIES Reviewed Notes: Nurses Notes, Medications, Allergies Allergies: Coded Allergies: NO KNOWN ALLERGIES (Unverified , 10/10/12) Home Meds Active Scripts Cyclobenzaprine Hcl (Cyclobenzaprine Hcl) 10 Mg Tab, 10 MG PO BID, #10 TAB As needed for muscle spasm Prov:ZEUS REESEA Q ARTIST BLACKSMITH 01/08/23 Ibuprofen Micronized (MOTRIN TABLET) 600 Mg Tb, 600 MG PO TID PRN, #20 TAB *Black box warning-NSAIDS can increase risk of SD & hypertension, GI irritation, ulceration, bleed, perferation. Do not use post cardiac surgery. Use short duration/lowest effective dose. Prov:ZEUS REESEA Q ARTIST BLACKSMITH 01/08/23 Hydrocodone-Acetaminophen (Hydrocodone Bitartrate/AC 5-325 mg) 1 Tab Tab, 1 TAB PO QIDP, #20 TAB Prov:NIMCO CARNES PAC 09/13/22 Ibuprofen Micronized (Ibuprofen) 800 Mg Tab, 800 MG PO TIDP PRN, #20 TAB Prov:NIMCO CARNES PAC 09/13/22 Mode of Arrival: Ambulatory Complexity: Simple Laceration Length (cm): 2 Past Medical History PAST MEDICAL HISTORY: Denies Surgical History: Denies all surgeries Family History Family History: Unknown Social History Smoker: Non-Smoker Alcohol: Denies ETOH Use Drugs: Denies Drug Use Lives In: Home All Other Systems: Reviewed and Negative (SEE HPI) Physical Exam General Appearance: No Apparent Distress, Normal HEENT: Pharynx Normal, TMs Normal Neck: Full Range of Motion, Non-Tender Respiratory: Lungs Clear, No Respiratory Distress, Normal Breath Sounds Cardiovascular: No Edema, No JVD, No Murmur, No Gallop, Normal Peripheral Pulses, Regular Rate/Rhythm Breast Exam: Deferred Gastrointestinal: No Organomegaly, Non Tender, No Pulsatile Mass, Normal Bowel Sounds, Soft Genitalia: Deferred Pelvic: Deferred Rectal: Deferred Extremities: Normal range of motion, No pedal edema Musculoskeletal : Apperance: Normal Neurologic: Alert, No Motor Deficits, Normal Affect, Normal Mood, No Sensory Deficits Cerebellar Function: Normal Reflexes: NOT DONE Skin: Dry, Lacerations (1.5 cm full-thickness laceration to top of scalp bleeding controlled no obvious foreign), Normal Color, Warm Lymphatic: No Adenopathy Was a procedure done? Was a procedure done?: Yes Sedation Sedation?: No Informed consent obtained: Yes Laceration Repair : Location Top of scalp Length 1.5 cm Anesthetic: Nothing Laceration Repair Prep: Betadine, by Irrigation Laceration Repair Wound Comple: epidermis/dermis repair Laceration Repair: [place] (One), Nothing Informed consent obtained: Yes Risks, benefits, and alternati: Yes Notes Patient tolerated well with no blood loss Differential diagnosis Generic Laceration: Hematoma, Fracture, Retained Foriegn Body, Laceration X-Ray, Labs, Meds, VS Vital Signs Date Time Temp Pulse Resp B/P (MAP) Pulse Ox O2 Delivery O2 Flow Rate FiO2 07/11/25 18:29 98.5 61 16 116/86 98 98.5 X-Ray, Labs, Meds, VS Comment SEE PROCEDURE NOTE. Advised [id number] Tylenol or Motrin as needed for the pain per labeled dosing instructions. Staple removal within 7-10 days. Advised to follow up urgent care primary care or back in the ER for removal. Advised to monitor for signs and symptoms of infection and uncontrolled bleeding return to the ER as indicated. Pt indicate understanding and agree with discharge plan of care. Advised to rest increase p.o. fluids with electrolytes. Light diet. Monitor for the next 24-48 hours avoid visual stimuli such as computer games, video games, or cell phone use to avoid headaches. Avoid vigorous activity. Return to the ER for nonstop vomiting, numbness, weakness, slurred speech, lethargy, or any concerning symptoms. Pt indicates understanding and agrees with discharge plan of care Time of 1ST Reevaluation: 18:57 Reevaluation 1ST: Unchanged Reevaluation 2ND: Improved Patient Education/Counseling: Diagnosis, Treatment, Need For Follow Up Family Education/Counseling: No Family Present Departure 1 Departure Time of Disposition: 19:57 Impression: Primary Impression: Head concussion Qualified Codes: S06.0X0A - Concussion without loss of consciousness, initial encounter Additional Impression: Scalp laceration Qualified Codes: S01.01XA - Laceration without foreign body of scalp, initial encounter Disposition: HOME / SELF CARE / HOMELESS Condition: Stable Discharged With: Self Critical Care Note Critical Care Time?: No Stability Stability form required: NIKO Smith Jul 11, 2025 18:58
--- NOTE | 2025-07-11 19:55 | DVH ---
EXAM: CT HEAD WITHOUT CONTRAST INDICATION: Status post head injury x2 TECHNIQUE: CT of the head without intravenous contrast. Radiation Dose Information: CT Dose: CTDI volume is 53.99 mGy. Dose-length product is 863.9 mGy*cm The dose indicators for CT are the volume Computed Tomography (CT) Dose Index (CTDIvol) and the Dose Length Product (DLP), and are measured in units of mGy and mGy-cm, respectively. These indicators are not patient dose, but values generated from the CT scanner acquisition factors. The report includes radiation exposure data for exposures received during this examination. COMPARISON: CT HEAD WITHOUT CONTRAST on DOS: 01/08/23 FINDINGS: There is no evidence of acute intracranial hemorrhage, extra-axial collection, mass effect, midline shift, herniation or hydrocephalus. The ventricles, sulci and cisterns are age appropriate. The worley-white differentiation is intact. Patchy periventricular and subcortical white matter hypoattenuation is nonspecific but may be related to small vessel ischemic disease. The visualized paranasal sinuses and mastoid air cells are clear. The surrounding soft tissues and osseous structures are unremarkable. IMPRESSION: No acute intracranial abnormality.
[2025-07-11] MEDS ORDERED: IBUP-1456 PO (19:59)
== END 2025-07-11 20:11 | disposition home or self-care (01) ==
LOC: ER 18:26
DX: S06.0X0A Concussion without loss of consciousness, initial encounter (principal); S01.01XA Laceration without foreign body of scalp, initial encounter; X58.XXXA Exposure to other specified factors, initial encounter; Y93.89 Activity, other specified; Y92.89 Other specified places as the place of occurrence of the external cause; Y99.8 Other external cause status
CPT/HCPCS: 12001; 70450; 99284; A4649

== ENCOUNTER 2025-07-20 22:10 | Emergency (ER) | payer MEDICAID ==
[~2025-07-20] VITALS: Ht 177.8 cm; Wt 95.6 kg
[2025-07-20 22:13] VITALS: BP 147/90; PULSE 65; RESP 16; TEMP 97.8; O2SAT 95
--- NOTE | 2025-07-21 01:07 | ED.PDOC ---
History of Present Illness(SKN HPI Comments 49-YEAR-OLD MALE PRESENTS TO THE ED CHIEF COMPLAINT STAPLE REMOVAL. PATIENT WAS SEEN HERE ON SEVEN DAYS AGO HAD ONE STAPLE POLICE OR TOP OF HIS HEAD FOR LACERATION. HE DENIES BLEEDING, FEVER, CHILLS OR ANY OTHER CONCERNS. Chief Complaint: Suture Removal Time Seen by MD: 22:16 Primary Care Provider: DENIES History of Present Illness: Nurses Notes, Medications, Allergies Allergies: Coded Allergies: NO KNOWN ALLERGIES (Unverified , 10/10/12) Home Meds Active Scripts Cyclobenzaprine Hcl (Cyclobenzaprine Hcl) 10 Mg Tab, 10 MG PO BID, #10 TAB As needed for muscle spasm Prov:ZEUS REESEA Q BINDERY PRODUCTION MANAGER 01/08/23 Ibuprofen Micronized (MOTRIN TABLET) 600 Mg Tb, 600 MG PO TID PRN, #20 TAB *Black box warning-NSAIDS can increase risk of IL & hypertension, GI irritation, ulceration, bleed, perferation. Do not use post cardiac surgery. Use short duration/lowest effective dose. Prov:ZEUS REESEA Q BINDERY PRODUCTION MANAGER 01/08/23 Hydrocodone-Acetaminophen (Hydrocodone Bitartrate/AC 5-325 mg) 1 Tab Tab, 1 TAB PO QIDP, #20 TAB Prov:NIMCO CARNES PAC 09/13/22 Ibuprofen Micronized (Ibuprofen) 800 Mg Tab, 800 MG PO TIDP PRN, #20 TAB Prov:NIMCO CARNES PAC 09/13/22 Discontinued Scripts Ibuprofen (Ibuprofen) 800 Mg Tab, 800 MG PO Q8HP PRN for 5 Days, #15 TAB Prov:NIKO MARMOLEJO PACKING MACHINE INSPECTOR 07/11/25 Mode of Arrival: Ambulatory Past Medical History PAST MEDICAL HISTORY: Denies Surgical History: Denies all surgeries Family History Family History: Unknown Social History Smoker: Non-Smoker Alcohol: Denies ETOH Use Drugs: Denies Drug Use Lives In: Home All Other Systems: Reviewed and Negative (SEE HPI) Physical Exam General Appearance: No Apparent Distress, Normal HEENT: Pharynx Normal Neck: Full Range of Motion, Non-Tender Respiratory: Lungs Clear, No Respiratory Distress, Normal Breath Sounds Cardiovascular: No Murmur, Normal Peripheral Pulses, Regular Rate/Rhythm Breast Exam: Deferred Gastrointestinal: Non Tender, Soft Genitalia: Deferred Pelvic: Deferred Rectal: Deferred Extremities: Normal range of motion Musculoskeletal : Apperance: Normal Neurologic: Alert, No Motor Deficits, Normal Affect, Normal Mood, No Sensory Deficits Cerebellar Function: Normal Reflexes: NOT DONE Skin: Dry, Normal Color, Warm, Wounds (ONE STAPLE INTACT TOP OF SCALP NO NOTED BLEEDING WELL APPROXIMATION) Lymphatic: No Adenopathy Was a procedure done? Was a procedure done?: Yes Sedation Sedation?: No Informed consent obtained: Yes Other Procedure Procedure STAPLE REMOVAL TO TOP OF SCALP Indication HEALED LACERATION Anesthetic NONE Prep NONE Success ONE STAPLE REMOVED WITH STAPLE REMOVAL KIT PATIENT TOLERATED WELL NO BLOOD LOSS WELL APPROXIMATED HEALED Informed consent obtained: Yes Risks, benefits, and alternati: Yes Differential Diagnosis (INTG) Differential Diagnosis: Cellulitis, Hematoma Differential Diagnosis: Abscess X-Ray, Labs, Meds, VS Vital Signs Date Time Temp Pulse Resp B/P (MAP) Pulse Ox O2 Delivery O2 Flow Rate FiO2 07/20/25 22:13 Room Air 07/20/25 22:13 97.8 65 16 147/90 95 97.8 X-Ray, Labs, Meds, VS Comment SEE PROCEDURE NOTE FOLLOW UP NEEDED Time of 1ST Reevaluation: 22:16 Reevaluation 1ST: Unchanged Time of 2ND Reevaluation: 01:07 Reevaluation 2ND: Improved Patient Education/Counseling: Diagnosis, Treatment Family Education/Counseling: No Family Present SEPSIS Sepsis Screen Date sepsis recognized/suspect: Jul 20, 2025 Time Sepsis recognized/suspect: 2214 Recent Procedure: No On Antibiotic Therapy: No Respiratory Rate >20: No Heart Rate >90: No Temp<36 C (96.8 F) or >38.3 C: No SBP <90 or MAP <65 mmHG: No New Acute Mental Status Change: No Is the patient on CPAP, BIPAP,: No Vital Signs Date Time Temp Pulse Resp B/P (MAP) Pulse Ox O2 Delivery O2 Flow Rate FiO2 07/20/25 22:13 Room Air 07/20/25 22:13 97.8 65 16 147/90 95 97.8 Departure 1 Departure Time of Disposition: 01:07 Impression: Primary Impression: Removal of staple Disposition: 01 HOME / SELF CARE / HOMELESS Condition: Stable Discharged With: Self Critical Care Note Critical Care Time?: No Stability Stability form required: NIKO Smith Jul 21, 2025 01:07
== END 2025-07-21 01:10 | disposition home or self-care (01) ==
LOC: ER 22:10
DX: S01.01XD Laceration without foreign body of scalp, subsequent encounter (principal); Z48.02 Encounter for removal of sutures; X58.XXXD Exposure to other specified factors, subsequent encounter